=== PATIENT | female | born 1975 | race Caucasian/White ===

== ENCOUNTER → 2017-05-19 | Outpatient (CLI) | payer BC ==
[~2017-05-19] MED LIST: ADJUSTABLE COMM1 MIS; AMLO5TAB96 PO; CPMMACHINE; LOSA25TA PO; MAXZ PO; MELO7.5 PO; MOBI7.5T PO; OMEP20TA PO; PROP20TA3 PO; WALKER WHEELS/F1 MIS
[2017-05-19 08:51] LABS: HEMATOCRIT 37.4 % (35.0-46.0); HEMOGLOBIN 12.8 GM/DL (11.6-15.3); MEAN CELL VOLUME 82.2 FL (80.0-100.0); MEAN CORPUSCULAR HEMOGLOBIN 28.1 PG (27.0-34.0); MEAN CORPUSCULAR HGB CONC 34.2 % (32.0-36.0); MEAN PLATELET VOLUME 8.8 FL (7.0-11.0); PLATELET COUNT 289 TH/MM3 (150-450); RED BLOOD COUNT 4.55 MIL/MM3 (4.00-5.30); RED CELL DISTRIBUTION WIDTH 13.5 % (11.6-17.2); WHITE BLOOD COUNT 7.2 TH/MM3 (4.0-11.0)
[2017-05-19 08:59] LABS: INTERNATIONAL NORMALIZED RATIO 1.1 RATIO; PROTHROMBIN TIME - PATIENT 10.8 SEC (9.8-11.6)
[2017-05-19 09:19] LABS: ALBUMIN 3.4 GM/DL (3.4-5.0); AST (GOT) 10 U/L (15-37); BLOOD UREA NITROGEN 11 MG/DL (7-18); CALCIUM 8.9 MG/DL (8.5-10.1); CHLORIDE 102 MEQ/L (98-107); CREATININE 0.73 MG/DL (0.50-1.00); GLOMERULAR FILTRATION RATE 87 ML/MIN (>89); GLUCOSE,FASTING 120 MG/DL (74-99); SODIUM (NA) 139 MEQ/L (136-145)
[2017-05-19 09:20] LABS: ALT (GPT) 13 U/L (10-53)
[2017-05-19 09:22] LABS: ALKALINE PHOSPHATASE 74 U/L (45-117); TOTAL BILIRUBIN ADULT 0.5 MG/DL (0.2-1.0); TOTAL PROTEIN 7.5 GM/DL (6.4-8.2)
[2017-05-19 10:10] LABS: BACTERIA, URINE MANY /hpf; BILIRUBIN, URINE NEG (NEG); BLOOD, URINE SMALL (NEG); GLUCOSE,URINE NEG (NEG); KETONE, URINE NEG (NEG); MUCUS URINE FEW /lpf (OCC); NITRITE,URINE NEG (NEG); PH, URINE 6.5 (5.0-8.5); SQUAMOUS EPITHELIAL CELL URINE 33 /hpf (0-5); URINE COLOR YELLOW (YELLW/STRAW); URINE LEUKOCYTE ESTERASE LARGE (NEG)
--- NOTE | 2017-05-19 10:13 | RADRPT ---
EXAM DATE/TIME: 05/19/2017 09:14 [facility] COMPARISON: No previous studies available for comparison. INDICATIONS : Evaluate for pneumonia, pneumothorax or communicable disease. Pre op for right knee replacement MEDICAL HISTORY : None. SURGICAL HISTORY : None. ENCOUNTER: Initial ACUITY: 1 day PAIN SCORE: 0/10 LOCATION: Bilateral chest FINDINGS: PA and lateral views of the chest demonstrate the lungs to be mildly under aerated without evidence o f mass, infiltrate or effusion. The cardiomediastinal contours are unremarkable. Osseous structures are intact. CONCLUSION: No acute disease with this degree of inspiration. Jaxson Haynes MD FACR on May 19, 2017 at 10:10 Board Certified Radiologist. This report was verified electronically.
--- NOTE | 2017-05-19 21:59 | EKG ---
Date Performed: 05/19/2017 Time Performed: 08:26:56 PTAGE: 42 years EKG: Sinus rhythm MODERATE T-WAVE ABNORMALITY, CONSIDER ANTERIOR ISCHEMIA ABNORMAL ECG NO PREVIOUS TRACING DOCTOR: Ally Navarro Interpretating Date/Time 05/19/2017 21:56:29
== END ==
LOC: CPRE 08:08
PROVIDERS: ATTEND Surgery
DX: Z01.810 Encounter for preprocedural cardiovascular examination (principal); Z01.811 Encounter for preprocedural respiratory examination; Z01.812 Encounter for preprocedural laboratory examination; M79.609 Pain in unspecified limb; R94.31 Abnormal electrocardiogram [ECG] [EKG]; R82.90 Unspecified abnormal findings in urine
CPT/HCPCS: 36415; 71046; 80053; 81001; 85027; 85610; 85730; 87086; 93005

== ENCOUNTER 2017-05-26 10:45 | Inpatient (IN) | payer BC ==
--- NOTE | 2017-05-21 13:16 | MH ---
cc: Ally TATE M.D. DATE OF ADMISSION 05/26/2017 ADMITTING DIAGNOSIS Osteoarthritic degeneration right knee now being admitted for right total knee arthroplasty. HISTORY OF PRESENT ILLNESS This pleasant 42-year-old female is being admitted today for severe painful osteoarthritic degeneration of the right knee due to arthritic degeneration, rheumatoid as well. OTHER PAST HISTORY The patient has a of: 1. Osteoarthritis 2. Plantar fibromatosis 3. Hypertension 4. Obesity CURRENT MEDICATIONS 1. Losartan. 2. Propranolol PAST SURGERIES She has had scopes in the past on her knees and cryo ablation. REVIEW OF SYSTEMS Noncontributory FAMILY HISTORY Noncontributory SOCIAL HISTORY The patient does not smoke or drink. ALLERGIES HE HAS ALLERGY TO ALEVE AND GERITOL. PHYSICAL EXAM ON physical exam, we find a 42-year female well-developed, well-nourished oriented x3 complaining of pain in her right knee. VITAL SIGNS: Blood pressure 130/90, pulse 70 and regular, respirations 18, temperature 98.3, pulse oximetry 98% on room air. HEENT: Eyes PERRL, EOMI. Ears, nose, mouth clear. NECK: Supple. LUNGS: Clear. HEART: Regular rate. ABDOMEN: Soft. Positive bowel sounds, nontender. EXTREMITIES: Reveal his right knee to be tender with crepitance on range of motion. She is neurovascularly intact to her toes. IMPRESSION AT THIS TIME Severe painful osteoarthritic degeneration right knee. PLAN Admission for a right total knee arthroplasty today. The patient given prescription for postoperative pain and anticoagulation control in the office. She understands to use Hibiclens scrub and Bactroban preoperatively and plans on going home with home health care after a surgical stay in the hospital. MD MARTHA Johnson/GIRISH /12:47 PM /1:02 PM
[~2017-05-26] VITALS: Ht 165.1 cm; Wt 104.6 kg
[~2017-05-26 10:45] MED LIST changes: -ADJUSTABLE COMM1 MIS; -AMLO5TAB96 PO; -CPMMACHINE; -MAXZ PO; -MELO7.5 PO; -OMEP20TA PO; -WALKER WHEELS/F1 MIS
[2017-05-26] MEDS ORDERED: EXPAREL PERI-ARTICULAR INJECTION (TOTAL VOL. 60 ML) P-ARTICULR SCH ×2 (11:15)
[2017-05-26] MEDS ORDERED: ceFAZolin 2 GM PREMIX 50 ML IV SCH (11:15)
[2017-05-26] MEDS ORDERED: POVIDONE IODINE 7.5% SCRUB 118 ML BOTTLE TOPICAL SCH (11:15)
[2017-05-26] MEDS ORDERED: VANCOMYCIN 1 GM/200 ML PREMIX IV SCH (11:15)
[2017-05-26] MEDS ORDERED: TRANEXAMIC ACID IV SCH ×5 (11:15→16:00)
[2017-05-26] MEDS ORDERED: SODIUM CHLORIDE 0.9% IV SCH ×5 (11:15→16:00)
[2017-05-26] MEDS ORDERED: CHLORHEXIDINE GLUCONATE 2 % 1 PACK (2 CLOTHS) TOPICAL PRN (11:30)
[2017-05-26] MEDS ORDERED: POVIDONE IODINE 5% (ANTISEPSIS KIT) 4 APPLICATIONS EACH NARE PRN (11:30)
[2017-05-26] MEDS ORDERED: METOPROLOL TARTRATE 25 MG TAB PO PRN (11:30)
[2017-05-26] MEDS ORDERED: SODIUM CHLORID 0.9% 500 ML IV PRN (11:30)
[2017-05-26] MEDS ORDERED: LACTATED RINGER'S 1000 ML IV PRN (11:30)
[2017-05-26] MEDS ORDERED: INSULIN HUMAN REGULAR 1,000 UNITS/10 ML VIAL SQ PRN (11:30)
[2017-05-26] MEDS ORDERED: FAT EMULSION 20% INJ 0 ML ONE (11:36)
[2017-05-26] MEDS ORDERED: DEXAMETHASONE SOD PHOS 20 MG/5 ML VIAL ONE (11:48)
[2017-05-26] MEDS ORDERED: ROCURONIUM INJ 50 MG/5 ML SYRINGE IV PUSH ONE (12:00)
[2017-05-26] MEDS ORDERED: ONDANSETRON HCL 4 MG/2 ML VIAL IV ONE (12:00)
[2017-05-26] MEDS ORDERED: PROPOFOL 200 MG/20 ML AMP IV ONE (12:00)
[2017-05-26] MEDS ORDERED: BUPIVACAINE LIPOSOME PF 1.3% 20 ML VIAL ONE (12:55)
[2017-05-26] MEDS ORDERED: MIDAZOLAM HCL 2 MG/2 ML VIAL ONE ×2 (12:55→16:58)
[2017-05-26] MEDS ORDERED: diphenhydrAMINE HCL 50 MG/ML VIAL IV PUSH PRN (13:00)
[2017-05-26] MEDS ORDERED: TEMAZEPAM 15 MG CAP PO PRN (13:00)
[2017-05-26] MEDS ORDERED: NALOXONE HCL 0.4 MG/ML AMP IV PUSH PRN (13:00)
[2017-05-26] MEDS ORDERED: MORPHINE SULFATE 4 MG/ML INJ IV PUSH PRN (13:00)
[2017-05-26] MEDS ORDERED: ONDANSETRON HCL 4 MG/2 ML VIAL IVP PRN (13:00)
--- NOTE | 2017-05-26 13:05 | HHI.FF ---
Face to Face Verification Diagnosis: (1) Status post total right knee replacement using cement Physical Therapy Gait training Knee: Total knee, Protocol: Right, Gait training, Full weight bearing Canvas Knee Splint: When in bed & 2 pillows btw thighs Nursing RN: 3 days/week x 2 weeks Nursing: Dressing changes Dressing Changes: Daily dressing change, 4x4s, Gauze, Paper tape I have seen patient Louise Gallegos on 05/26/17. My clinical findings support the need for the requested home health care services because: Limited ability to care for self High risk of falls I certify that my clinical findings support that this patient is homebound because: Unsteady gait/balance Ally Graham MD May 26, 2017 13:05
[2017-05-26] MEDS ORDERED: WALKER WHEELS/F1 MIS (13:06)
[2017-05-26] MEDS ORDERED: CPMMACHINE (13:06)
[2017-05-26] MEDS ORDERED: ADJUSTABLE COMM1 MIS (13:06)
[2017-05-26] MEDS ORDERED: ceFAZolin INJ 1,000 MG VIAL ONE (13:45)
[2017-05-26] MEDS ORDERED: ACETAMINOPHEN 325 MG TAB PO PRN (14:00)
[2017-05-26] MEDS ORDERED: Post-op Orders (for Pharmacy) XX ONE (14:00)
[2017-05-26] MEDS ORDERED: PILL SPLITTER OTHER PRN (14:00)
[2017-05-26] MEDS ORDERED: ACETAMINOPHEN/HYDROcodone 325 MG/7.5 MG TAB PO PRN (14:00)
[2017-05-26] MEDS ORDERED: DO NOT ADM ANY ANTICOAGULANT DRUGS PRN (16:54)
--- NOTE | 2017-05-26 16:57 | HHI.PR ---
Immediate Post Op Note Procedure Date: May 26, 2017 Pre Op Diagnosis: severe painful osteoarthritic degeneration of the right knee due to arthritic degeneration, rheumatoid as well. Post Op Diagnosis: severe painful osteoarthritic degeneration of the right knee due to arthritic degeneration, rheumatoid as well. Surgeon: Shun Graham MD Chief Quality Officer(s): Blanca SHELBY Procedure: Right Total Knee Arthroplasty Complications: none Estimated blood loss: 200cc Anesthesia: General Drains: None IVF Urinary Output (mLs): 0 (No Tenorio) Tourniquet time (min at mmHg) 43 mins at 300mmHg Patient to: PACU Patient Condition: Good Implant/Devices: SEE IMPLANT LOG (if applicable) Date/Time of Procedure: SEE SURGICAL CARE RECORD Blanca Jang May 26, 2017 16:57
[2017-05-26] MEDS: LACTATED RINGER'S 1000 ML INJ 1,000 ML IV SCH (17:00)
[2017-05-26] MEDS ORDERED: *morphine SULFATE 10 MG/ML PERIprocedure ONLY ONE ×2 (17:02→18:41)
--- NOTE | 2017-05-26 17:54 | RADRPT ---
EXAM DATE/TIME: 05/26/2017 17:12 [facility] COMPARISON: No previous studies available for comparison. INDICATIONS : Post op right knee arthroplasty. MEDICAL HISTORY : None. SURGICAL HISTORY : None. ENCOUNTER: Initial ACUITY: 1 day PAIN SCORE: 4/10 LOCATION: Right knee FINDINGS: AP and lateral views of the knee following arthroplasty reveals a prosthesis in anatomic alignment. F racture is not appreciated. CONCLUSION: Status post total knee arthroplasty. Jaxson Haynes MD FACR Jaxson Haynes MD FACR on May 26, 2017 at 17:51 Board Certified Radiologist. This report was verified electronically.
[2017-05-26 19:45] VITALS: BP 158/84; PULSE 65; RESP 18; TEMP 96.7; O2SAT 99
[2017-05-26] MEDS: ACETAMINOPHEN/HYDROcodone 325 MG/7.5 MG TAB PO PRN ×2 (19:49→23:51)
[2017-05-26] MEDS: PROPRANOLOL HCL 20 MG TAB PO SCH (21:39)
[2017-05-27] VITALS (7 sets, daily range): BP systolic 140–185; BP diastolic 70–94; PULSE 55–73; RESP 17; TEMP 97.2–98.7; O2SAT 96–100
[2017-05-27] MEDS: LACTATED RINGER'S 1000 ML INJ 1,000 ML IV SCH ×2 (00:50→14:00)
[2017-05-27] MEDS: ACETAMINOPHEN/HYDROcodone 325 MG/7.5 MG TAB PO PRN ×4 (05:02→20:15)
[2017-05-27 08:23] LABS: HEMATOCRIT 31.9 % (35.0-46.0)
[2017-05-27] MEDS: LOSARTAN 25 MG TAB PO SCH (08:49)
[2017-05-27] MEDS: PROPRANOLOL HCL 20 MG TAB PO SCH ×2 (08:53→20:15)
--- NOTE | 2017-05-27 11:16 | PD.ORT.PN ---
Subjective Subjective Remarks Patient is comfortable and lying in bed first day postop. Objective Vitals Vital Signs Date Time Temp Pulse Resp B/P (MAP) Pulse Ox O2 Delivery O2 Flow Rate FiO2 05/27/17 08:28 96 Nasal Cannula 2.00 05/27/17 08:00 97.6 55 17 140/70 (93) 96 05/27/17 06:22 18 05/27/17 05:35 97.2 58 17 150/71 (97) 97 05/27/17 00:25 98.7 71 17 185/94 (124) 98 05/26/17 19:45 96.7 65 18 158/84 (108) 99 05/26/17 18:45 98.1 61 20 166/84 (111) 100 Nasal Cannula 2 05/26/17 17:45 61 20 163/80 (107) 100 Nasal Cannula 2 05/26/17 17:30 66 20 161/91 (114) 98 Nasal Cannula 2 05/26/17 17:15 88 20 152/81 (104) 99 Nasal Cannula 2 05/26/17 17:00 82 20 167/86 (113) 100 Nasal Cannula 2 05/26/17 16:48 97.6 82 20 134/77 (96) 98 Nasal Cannula 2 05/26/17 12:38 97.3 57 16 166/86 (112) 100 05/26/17 11:39 98.8 64 16 147/87 (107) 99 I/O 05/26/17 05/26/17 05/26/17 05/27/17 05/27/17 05/27/17 07:00 15:00 23:00 07:00 15:00 23:00 Intake Total 1660 ml 460 ml 100 ml Output Total 200 ml Balance 1460 ml 460 ml 100 ml Intake Oral 360 ml 360 ml IV Total 1300 ml 100 ml 100 ml Output Estimated Blood Loss 200 ml # Voids 1 1 2 # Bowel Movements 0 0 Result Diagram: 05/27/17 0807 Imaging Last 24 hours Impressions Knee X-Ray 05/26/17 1300 Signed Impressions: Service Date/Time: Friday, May 26, 2017 17:12 - CONCLUSION: Status post total knee arthroplasty. Jaxson Haynes MD Objective Remarks Dressing is dry and intact. No calf tenderness. Assessment & Plan Ortho Post Op Day #: 1 Problem List: Assessment and Plan Continue PT and daily wound care. Home tomorrow with home healthcare. Ally Graham MD May 27, 2017 11:15
--- NOTE | 2017-05-27 12:45 | MP ---
cc: Ally GRAHAM M.D. DATE OF SURGERY 05/26/2017 PREOPERATIVE DIAGNOSIS Osteoarthritic degeneration right knee. POSTOPERATIVE DIAGNOSIS Osteoarthritic degeneration right knee. SURGERY PERFORMED Right total knee arthroplasty using Consensus components, size 3 femur, 1 tibia, 12 insert and size 1 patella, two batches of DePuy cement. SURGEON Dr. Graham PEDIATRIC PHYSICIAN ASSISTANT AFSANEH Kan ANESTHESIA General intubation. PROCEDURE After successful induction of anesthesia, the patient is placed on the operating room table in the supine position. The knee is prepped and draped in the usual manner. A tourniquet is inflated at the upper thigh and set to 300 mmHg pressure after exsanguination of the lower extremity. A longitudinal incision is made extending from 3 inches proximal to the superior pole of the patella, across the patella in longitudinal fashion, and down past the insertion of the tibial tubercle into the proximal tibia. The incision is carried down through subcutaneous tissue along the medial aspect of the patella and retinaculum, down through the capsule to expose the knee joint. The patella and patellar tendon are freed up enough to allow the patella to be inverted and retracted off the lateral side of the knee joint. The knee joint is left exposed. Small osteophytes are removed. All soft tissue is removed to allow proper position of the femoral and tibial cutting jig guide. The first femoral jig is then inserted along the distal end of the femur after first measuring to decide whether this is a small, medium, or large component. The notch is then drilled and the tibial cutting guide inserted into the femoral cutting guide, along with the ankle brace to allow for proper measurement of the tibial cutting surface that needed to be resected. Pins are inserted into the tibial cutting jig and femoral cutting jig to hold them in place. An oscillating saw is then used to resect the surface of the tibia. The surface of the tibia is then completely removed using sharp and blunt dissection. The anterior and posterior cuts of the femur are then made as well using an oscillating saw through the cutting guide. All guides are then removed and the varus/valgus angulation cutting guide applied to the femur for proper measurement of the proper amount of valgus. The anterior cutting guide for the femur is then inserted at the anterior femoral cuts made. Next, the first block trial is inserted into the femur to allow for proper condyle drill holes to be made which are then made followed by removal of the bone between the condyles using an oscillating saw as well as the bone removed at the most posterior surface of the condyle. After this, this guide is removed and the chamfer cuts made using the chamfer cutting guide from both anterior and posterior. Next, the femoral trial is then inserted, the tibial surface reflected anterior to expose the tibial surface and a tibial stem guide is inserted after first measuring for a standard, standard plus, large, or large plus surface to be used. After the stem is impacted the trial tibial surface is applied followed by the trial meniscal components. After full range of motion is found with the appropriate length meniscal components varying the patella is prepared by resecting the posterior aspect of the patella using an oscillating saw, inserting a trial. The trial is then removed and the cruciate cutting guide applied using the bur to cut the cruciate cuts. After cruciate cuts are made all trials are removed. The wound is irrigated copiously with antibiotic solution and Water Pik and the actual components inserted into place using Consensus components, size 3 femur, 1 tibia, 12 insert and size 1 patella, two batches of DePuy cement. After the cement has hardened and the components are found to have full range of motion with no instability, the tourniquet is deflated, total tourniquet time being 43 minutes at 300 mmHg pressure. Meticulous hemostasis is achieved with the help of 3 mg of Tanya and 120 cc Exparel used around the knee joint for extra pain control. The deep fascia was approximated with running #2 Quill, the subcutaneous tissue approximated using interrupted and running 2-0 and 4-0 Monocryl sutures, Steri-Strips and sterile dressing, knee immobilizer. No drain utilized. ESTIMATED BLOOD LOSS 200 cc. COUNTS Sponge and suture counts were correct. The patient tolerated the procedure well and left the operating room in satisfactory condition. AFSANEH Kan, was present during the entire procedure to include patient positioning and the procedure. The medical necessity of the nurse practitioner entry level marketing assistant was indicated in this case due to the surgical complexity of the case itself. During the surgery for the whole case the surgical instrument technician was working the back table while my surgical garment assembly supervisor AFSANEH was directly assisting me. J. MD MARTHA Garcia/LUCY /4:18 PM /12:29 PM
[2017-05-27] MEDS: APIXABAN 2.5 MG TABLET PO SCH ×2 (15:39→20:15)
[2017-05-27] MEDS: DOCUSATE SODIUM 100 MG CAP PO SCH (20:15)
[2017-05-28] VITALS (8 sets, daily range): BP systolic 130–147; BP diastolic 62–97; PULSE 68–89; RESP 17–18; TEMP 97.5–99.2; O2SAT 96–98
[2017-05-28] MEDS: ACETAMINOPHEN/HYDROcodone 325 MG/7.5 MG TAB PO PRN ×6 (00:20→22:45)
[2017-05-28] MEDS: LACTATED RINGER'S 1000 ML INJ 1,000 ML IV SCH ×2 (02:30→15:00)
--- NOTE | 2017-05-28 08:16 | HHI.DS ---
Discharge Summary Admission Date May 26, 2017 at 10:45 Discharge Date: May 28, 2017 Admitting Diagnosis Osteoarthritic degeneration right knee Diagnosis: (1) Status post total right knee replacement using cement ICD Codes: Z96.651 - Presence of right artificial knee joint Brief History This is a 42 year old female patient CBC/BMP: 05/27/17 0807 Significant Findings Laboratory Tests Test 05/27/17 08:07 Hemoglobin 11.0 GM/DL (11.6-15.3) Hematocrit 31.9 % (35.0-46.0) PE at Discharge Dressing is dry and intact. No calf tenderness. Hospital Course This patient underwent a right total knee arthroplasty on day of admission. She received a course of prophylactic IV antibiotics and within 23 hours started on anticoagulation therapy. She remained afebrile with stable vital signs began out of bed tolerating food and fluid well and by mouth pain meds. She received daily wound care and was discharged on postoperative day #2 in good condition with instructions for home healthcare physical therapy and follow -up in the office. Pt Condition on Discharge: Good Discharge Disposition: Disch w/ Home Health Serv Discharge Instructions Diet Instructions: As Tolerated, No Restrictions Activities You Can Perform: Full Weight Bearing, Shower Only-No Bath Activities to Avoid: Bathing, Driving Ally Graham MD May 28, 2017 08:16
--- NOTE | 2017-05-28 08:17 | PD.ORT.PN ---
Subjective Subjective Remarks Patient is comfortable and sitting up in chair. Objective Vitals Vital Signs Date Time Temp Pulse Resp B/P (MAP) Pulse Ox O2 Delivery O2 Flow Rate FiO2 05/28/17 08:00 98.4 69 17 130/69 (89) 97 05/28/17 00:25 98.2 76 17 147/97 (114) 97 05/27/17 20:00 97.9 73 17 149/75 (99) 100 05/27/17 17:42 99 Nasal Cannula 2.00 05/27/17 16:00 98.0 66 17 147/70 (95) 99 05/27/17 08:28 96 Nasal Cannula 2.00 I/O 05/27/17 05/27/17 05/27/17 05/28/17 05/28/17 05/28/17 07:00 15:00 23:00 07:00 15:00 23:00 Intake Total 460 ml 580 ml 360 ml 360 ml Balance 460 ml 580 ml 360 ml 360 ml Intake Oral 360 ml 480 ml 360 ml 360 ml IV Total 100 ml 100 ml # Voids 2 2 1 2 # Bowel Movements 0 0 0 0 Result Diagram: 05/27/17 0807 Imaging Last 24 hours Impressions Knee X-Ray 05/26/17 1300 Signed Impressions: Service Date/Time: Friday, May 26, 2017 17:12 - CONCLUSION: Status post total knee arthroplasty. Jaxson Haynes MD Objective Remarks Dressing is dry and intact. No calf tenderness. Assessment & Plan Ortho Post Op Day #: 2 Problem List: (1) Status post total right knee replacement using cement ICD Codes: Z96.651 - Presence of right artificial knee joint Assessment and Plan Continue PT and daily wound care. Home today with home healthcare. Ally Graham MD May 28, 2017 08:17
[2017-05-28] MEDS: APIXABAN 2.5 MG TABLET PO SCH ×2 (09:27→22:04)
[2017-05-28] MEDS: PROPRANOLOL HCL 20 MG TAB PO SCH ×2 (09:27→22:04)
[2017-05-28] MEDS: LOSARTAN 25 MG TAB PO SCH (09:27)
[2017-05-28] MEDS: DOCUSATE SODIUM 100 MG CAP PO SCH ×2 (09:27→22:03)
[2017-05-28 10:08] LABS: HEMATOCRIT 30.8 % (35.0-46.0); HEMOGLOBIN 10.4 GM/DL (11.6-15.3)
[2017-05-28] MEDS ORDERED: BACITRACIN OINT 0.9 GM PKT TOP PRN (10:15)
[2017-05-29] MEDS: ACETAMINOPHEN/HYDROcodone 325 MG/7.5 MG TAB PO PRN ×3 (03:18→12:39)
[2017-05-29] MEDS: LACTATED RINGER'S 1000 ML INJ 1,000 ML IV SCH (03:30)
[2017-05-29 08:00] VITALS: BP 167/85; PULSE 81; RESP 17; TEMP 98; O2SAT 97
[2017-05-29 08:05] VITALS: O2SAT 98
[2017-05-29] MEDS: LOSARTAN 25 MG TAB PO SCH (08:20)
[2017-05-29] MEDS: PROPRANOLOL HCL 20 MG TAB PO SCH (08:20)
[2017-05-29] MEDS: DOCUSATE SODIUM 100 MG CAP PO SCH (08:20)
[2017-05-29] MEDS: APIXABAN 2.5 MG TABLET PO SCH (08:20)
[2017-05-29 12:00] VITALS: BP 141/71; PULSE 98; RESP 17; TEMP 98.5; O2SAT 99
--- NOTE | 2017-05-29 12:05 | PD.ORT.PN ---
Subjective Subjective Remarks Patient is comfortable and sitting up in chair.Awaiting [facility] approval before discharge! Objective Vitals Vital Signs Date Time Temp Pulse Resp B/P (MAP) Pulse Ox O2 Delivery O2 Flow Rate FiO2 05/29/17 08:05 98 21 05/29/17 08:00 98.0 81 17 167/85 (112) 97 05/28/17 23:40 98.6 78 18 131/62 (85) 96 05/28/17 21:45 98 Nasal Cannula 2.00 05/28/17 20:04 99.2 89 18 133/64 (87) 98 05/28/17 16:00 97.5 69 17 133/66 (88) 97 I/O 05/28/17 05/28/17 05/28/17 05/29/17 05/29/17 05/29/17 07:00 15:00 23:00 07:00 15:00 23:00 Intake Total 360 ml 480 ml 480 ml 360 ml Balance 360 ml 480 ml 480 ml 360 ml Intake Oral 360 ml 480 ml 480 ml 360 ml # Voids 2 3 5 1 # Bowel Movements 0 0 0 0 Result Diagram: 05/28/17 0750 Imaging Last 24 hours Impressions Knee X-Ray 05/26/17 1300 Signed Impressions: Service Date/Time: Friday, May 26, 2017 17:12 - CONCLUSION: Status post total knee arthroplasty. Jaxson Haynes MD Objective Remarks Dressing is dry and intact. No calf tenderness. Assessment & Plan Ortho Post Op Day #: 3 Problem List: (1) Status post total right knee replacement using cement ICD Codes: Z96.651 - Presence of right artificial knee joint Assessment and Plan Continue PT and daily wound care. Hopefully Home today with home healthcare. Ally Graham MD May 29, 2017 12:05
[2017-05-29] MEDS ORDERED: MAGNESIUM HYDROXIDE SUSP 30 ML CUP PO PRN (13:15)
[2017-05-29] MEDS ORDERED: BISACODYL 10 MG SUPP RECTAL PRN (13:15)
== END 2017-05-29 13:34 | disposition home health service (06) | DRG 470 ==
LOC: HSDI 10:45 → N06A 19:44
PROVIDERS: ADMIT Surgery; ATTEND Surgery
PROC: 0SRC0J9 Replacement of Right Knee Joint with Synthetic Substitute, Cemented, Open Approach (ICD-10-PCS; principal; 2017-05-26 14:06)
DX: M17.11 Unilateral primary osteoarthritis, right knee (principal); M06.9 Rheumatoid arthritis, unspecified; I10 Essential (primary) hypertension; E66.9 Obesity, unspecified; Z68.38 Body mass index [BMI] 38.0-38.9, adult
CPT/HCPCS: 73560; 85014; 85018; 86850; 86900; 86901; 94150; C1776; C9290; J0690; J1100; J2250; J2270; J2405; J3010; J3370; J7120; L1830

== ENCOUNTER 2017-11-24 07:24 | Observation (INO) ==
[2017-11-24] MEDS ORDERED: Dexamethasone Inj 20 MG/5 ML Vial ONE (08:05)
[2017-11-24] MEDS ORDERED: Sodium Chlor 0.9% Inj 250 ML ONE (08:07)
--- NOTE | 2017-11-24 08:37 | MH ---
cc: Ally Graham MD DATE OF ADMISSION: 11/24/2017 ADMITTING DIAGNOSIS: Osteoarthritic degeneration of the left knee, now being admitted for left total knee arthroplasty. HISTORY OF PRESENT ILLNESS: This is a pleasant 42-year-old female who is being admitted today for a left total knee arthroplasty due to severe painful osteoarthritic degeneration of the left knee. She recently had a right total knee done and did well. PAST MEDICAL HISTORY: The patient has a history of hypertension and arthritis. CURRENT MEDICATIONS: Mobic, which was stopped before surgery. PAST SURGICAL HISTORY: The right total knee arthroplasty and she has had bilateral arthroscopies of her knees before that. REVIEW OF SYSTEMS: Noncontributory. FAMILY HISTORY: Noncontributory. SOCIAL HISTORY: She does not smoke or drink. ALLERGIES: ALLERGIC TO ALEVE. PHYSICAL EXAMINATION: GENERAL: We find a 42-year-old female, well-developed, well-nourished, oriented x 3, complaining of pain in the left knee. VITAL SIGNS: Blood pressure 126/80, pulse 75 and regular, respirations 16, temperature 98.3, pulse oximetry 98% on room air. HEENT: Eyes: PERRL. EOMI. Ears, nose, mouth clear. NECK: Supple. LUNGS: Clear. HEART: Regular rate. ABDOMEN: Soft, positive bowel sounds, nontender. EXTREMITIES: Reveal the left knee to have crepitance on range of motion, which is limited. She is neurovascularly intact to her toes. Right knee has good range of motion. IMPRESSION: Severe painful osteoarthritic degeneration of the left knee. PLAN: Admission for a left total knee arthroplasty today. The patient was given prescription for postoperative pain and anticoagulation control in the office and plans on going home after the surgical stay in the hospital. MD MARTHA Julian/ALEXANDREA , 03:49 PM , 03:55 PM
[2017-11-24] MEDS ORDERED: Chlorhexidine Gluconate 2% 1 Pack (2 Cloths) TOPICAL SCH (08:45)
[2017-11-24] MEDS ORDERED: Metoprolol Tartrate 25 MG Tablet PO SCH (08:45)
[2017-11-24] MEDS ORDERED: Sodium Chlor 0.9% Inj 80 ML, Bupivacaine Liposo PF 1.3% Inj 20 ML, Bupivacaine PF 0.25%... P-ARTICULR SCH ×3 (08:45)
[2017-11-24] MEDS ORDERED: Vancomycin Inj 1,000 MG in Sodium Chlor 0.9% Inj 250 ML IV.SIG SCH (09:00)
[2017-11-24] MEDS ORDERED: CEFAZOLIN 2 GM/100 ML IV.SIG ONE ×2 (09:00)
[2017-11-24] MEDS ORDERED: SODIUM CHLOR 0.9% IV.SIG SCH (09:00)
[2017-11-24] MEDS ORDERED: Sodium Chlor 0.9% Inj 500 ML IV.SIG SCH (09:00)
[2017-11-24] MEDS ORDERED: NS IV.SIG ONE ×2 (09:00)
[2017-11-24] MEDS ORDERED: ceFAZolin 2 GM Premix Inj 2 GM/50 ML PIGGYBACK IV.SIG SCH (09:00)
[2017-11-24] MEDS ORDERED: TRANEXAMIC ACID IV.SIG SCH (09:00)
[2017-11-24] MEDS ORDERED: Bisacodyl 10 MG Supp RECTAL PRN (10:54)
[2017-11-24] MEDS ORDERED: Post-op Orders (for Pharmacy) OTHER STA (10:54)
--- NOTE | 2017-11-24 10:57 | P.DCO ---
- Physical Therapy Order: Evaluate and treat, Improve ambulation, Strength and gait training - Certification I have seen patient Louise Gallegos on 11/24/17. My clinical findings support the need for the requested home health care services because: High risk of falls I certify that my clinical findings support that this patient is homebound because: Post-op weakness, Unsteady gait/balance
[2017-11-24] MEDS ORDERED: Tobramycin Sulfate 1,200 MG Vial (for ortho/sterile core) OTHER ONE (11:31)
[2017-11-24] MEDS ORDERED: Lidocaine PF 1% Inj 5 ML Syringe INFILTRATN ONE (12:00)
[2017-11-24] MEDS ORDERED: Phenylephrine/NS 1000 MCG/10ML Syringe IV.PUSH ONE (12:00)
[2017-11-24] MEDS ORDERED: ceFAZolin 2 GM Premix Inj 0 GM/0 ML PIGGYBACK IV.SIG ONE (12:09)
[2017-11-24] MEDS ORDERED: *morphine SULFATE 10 MG/ML PERIprocedure ONLY ONE ×2 (14:43→15:48)
[2017-11-24] MEDS ORDERED: fentaNYL Citrate Inj 100 MCG/2 ML Ampul ONE (14:50)
--- NOTE | 2017-11-24 14:53 | P.BOP ---
- Preoperative Diagnosis (1) Osteoarthritis of left knee - Postoperative Diagnosis (1) Status post total left knee replacement using cement (2) Osteoarthritis of left knee Date of procedure: 11/24/17 Procedure: Left total Knee Arthroplasty Implants: see implant record Anesthesia: GETA Surgeon: Ally Graham MD Technical Applications Scientist: Blanca Jang Estimated blood loss (mL): 100 Tourniquet time (min): 60 (300 mmHg) Urine output (mL): 0 (no gregg) Pathology: none sent Condition: stable Disposition: PACU
--- NOTE | 2017-11-24 15:35 | MP ---
cc: Ally Graham MD DATE OF OPERATION: 11/24/2017 PREOPERATIVE DIAGNOSIS: Osteoarthritic degeneration, left knee. POSTOPERATIVE DIAGNOSIS: Osteoarthritic degeneration, left knee. PROCEDURE PERFORMED: Left total knee arthroplasty using Consensus components, size 3 femur, 1 tibia, 12 standard insert and size 1 patella with 2 batches of DePuy cement. SURGEON: Ally Graham MD CURBSTONE SETTER: AFSANEH Pastrana ANESTHESIA: General intubation and block. DESCRIPTION OF PROCEDURE: After successful induction of anesthesia, the patient is placed on the operating room table in the supine position. The knee is prepped and draped in the usual manner. A tourniquet is inflated at the upper thigh and set to 300 mmHg pressure after exsanguination of the lower extremity. A longitudinal incision is made extending from 3 inches proximal to the superior pole of the patella, across the patella in longitudinal fashion, and down past the insertion of the tibial tubercle into the proximal tibia. The incision is carried down through subcutaneous tissue along the medial aspect of the patella and retinaculum, down through the capsule to expose the knee joint. The patella and patellar tendon are freed up enough to allow the patella to be inverted and retracted off the lateral side of the knee joint. The knee joint is left exposed. Small osteophytes are removed. All soft tissue is removed to allow proper position of the femoral and tibial cutting jig guide. The first femoral jig is then inserted along the distal end of the femur after first measuring to decide whether this is a small, medium, or large component. The notch is then drilled and the tibial cutting guide inserted into the femoral cutting guide, along with the ankle brace to allow for proper measurement of the tibial cutting surface that needed to be resected. Pins are inserted into the tibial cutting jig and femoral cutting jig to hold them in place. An oscillating saw is then used to resect the surface of the tibia. The surface of the tibia is then completely removed using sharp and blunt dissection. The anterior and posterior cuts of the femur are then made as well using an oscillating saw through the cutting guide. All guides are then removed and the varus/valgus angulation cutting guide applied to the femur for proper measurement of the proper amount of valgus. The anterior cutting guide for the femur is then inserted at the anterior femoral cuts made. Next, the first block trial is inserted into the femur to allow for proper condyle drill holes to be made which are then made followed by removal of the bone between the condyles using an oscillating saw as well as the bone removed at the most posterior surface of the condyle. After this, this guide is removed and the chamfer cuts made using the chamfer cutting guide from both anterior and posterior. Next, the femoral trial is then inserted, the tibial surface reflected anterior to expose the tibial surface and a tibial stem guide is inserted after first measuring for a standard, standard plus, large, or large plus surface to be used. After the stem is impacted the trial tibial surface is applied followed by the trial meniscal components. After full range of motion is found with the appropriate length meniscal components varying the patella is prepared by resecting the posterior aspect of the patella using an oscillating saw, inserting a trial. The trial is then removed and the cruciate cutting guide applied using the bur to cut the cruciate cuts. After cruciate cuts are made all trials are removed. The wound is irrigated copiously with antibiotic solution and Water Pik and the actual components inserted into place using the aforementioned components. After the cement has hardened and the components are found to have full range of motion with no instability, the tourniquet is deflated, total tourniquet time being 60 minutes at 300 mmHg pressure. The wound again is irrigated copiously with antibiotic solution, meticulous hemostasis achieved and 120 mL of Exparel used around the knee joint for extra pain control. The deep fascia was approximated with running #2 Quill. The subcutaneous tissue was approximated using interrupted and running 2-0 and 3-0 Monocryl suture and Prineo dressing. No drain utilized. ESTIMATED BLOOD LOSS: 100 mL. COUNTS: Sponge and suture counts were correct. COMPONENTS: The components used were Consensus components, size 3 femur, 1 tibia, 12 standard insert and size 1 patella with 2 batches of DePuy cement. The patient tolerated the procedure well and left the operating room in satisfactory condition. AFSANEH Urena, was present during the entire procedure to include patient positioning and the procedure. The medical necessity of a nurse practitioner administrative assistant front desk was indicated in this case due to the surgical complexity of the case itself. During the surgical case, the surgical coordinator was working on the back table while my surgical aides teacher AFSANEH was directly assisting me. J. Gabriel Graham MD JRShea/jl , 02:11 PM , 02:18 PM
--- NOTE | 2017-11-24 15:39 | XR ---
EXAM DATE: 11/24/2017 3:21 PM EDT AGE/SEX: 42 years / Female INDICATIONS: Post op left knee. CLINICAL DATA: This is the patient's initial encounter. Patient reports that signs and symptoms have been present for 1 day and indicates a pain score of Nonresponsive. MEDICAL/SURGICAL HISTORY: None. None. COMPARISON: [facility] [place], KNEE RIGHT LTD (1 OR 2 VWS), 05/26/2017. . FINDINGS: Total left knee arthroplasty. All 3 components are appropriately positioned. No fracture. CONCLUSION: Appropriate postoperative appearance of the left knee status post arthroplasty. Electronically signed by: Dionte Jimenez MD 11/24/2017 3:37 PM EDT
[2017-11-24] MEDS ORDERED: Tranexamic Acid Inj 1,000 MG in Sodium Chlor 0.9% Inj 100 ML IV.SIG ONE (16:00)
[2017-11-24] MEDS ORDERED: *HYDROmorphone PF Inj 1 MG/ML Ampul PERIprocedural Use ONLY ONE (18:30)
[2017-11-24] MEDS ORDERED: *Ondansetron Inj 4 MG/2 ML Vial PERIprocedural Use ONLY ONE (18:58)
[2017-11-24] MEDS ORDERED: *Labetalol HCl Inj 100 MG/20 ML Vial PERIprocedural Use ONLY IV.PUSH ONE (19:17)
[2017-11-24] MEDS: Senna/Docusate Sodium 8.6/50 MG Tablet PO SCH (21:41)
[2017-11-24] MEDS: Multivitamin/Minerals Therapeutic Tablet PO SCH (21:41)
[2017-11-25 05:49] LABS: Hematocrit 32.1 % (35.0-46.0); Hemoglobin 10.8 gm/dL (11.6-15.3)
[2017-11-25] MEDS: Multivitamin/Minerals Therapeutic Tablet PO SCH ×2 (09:48→21:07)
--- NOTE | 2017-11-25 10:48 | P.PNOP ---
Subjective Interval history: Pt mostly comfortable today. Some pain over thigh area. Physical Exam Vital signs: Vital Signs 11/24/17 14:39 11/24/17 14:45 11/24/17 14:46 Temperature 98.2 F Pulse Rate 97 H 100 H Respiratory Rate 15 12 17 Blood Pressure 135/75 138/73 Pulse Oximetry 96 98 11/24/17 15:00 11/24/17 15:15 11/24/17 15:30 Temperature Pulse Rate 93 H 92 H 96 H Respiratory Rate 20 17 17 Blood Pressure 136/78 144/79 H 155/84 H Pulse Oximetry 99 99 100 11/24/17 15:50 11/24/17 16:00 11/24/17 16:30 Temperature Pulse Rate 90 92 H Respiratory Rate 20 18 13 Blood Pressure 154/81 H 143/74 H Pulse Oximetry 100 100 11/24/17 17:00 11/24/17 18:00 11/24/17 19:00 Temperature 97.9 F Pulse Rate 73 87 84 Respiratory Rate 14 14 18 Blood Pressure 153/75 H 163/97 H 174/86 H Pulse Oximetry 93 L 97 100 11/24/17 19:30 11/24/17 20:00 11/25/17 00:00 Temperature 97.8 F 97.9 F Pulse Rate 80 83 80 Respiratory Rate 16 16 16 Blood Pressure 155/84 H 147/80 H 130/65 Pulse Oximetry 99 99 95 11/25/17 04:00 11/25/17 08:00 Temperature 97.7 F 97.9 F Pulse Rate 82 67 Respiratory Rate 18 18 Blood Pressure 133/68 159/67 H Pulse Oximetry 98 99 Intake & Output 11/24/17 11/25/17 11/25/17 18:59 06:59 18:59 Intake Total 1300 / 1300 1340 / 1340 Output Total 100 / 100 550 / 550 Balance 1200 / 1200 790 / 790 Weight 104.7 kg 105.8 kg Intake: IV 1300 / 1300 1100 / 1100 LR 1000 mL Inj 1,000 ML @ 80 1000 / 1000 mls/hr IV.CONT .[id number] [facility] Rx# :[id number] LR 1000 mL Inj 1,000 ML @ 30 1300 / 1300 mls/hr IV.SIG .Q24H [facility] Rx#: [id number] Ancef Inj 1,000 MG In NS Inj 100 / 100 100 ML @ 200 mls/hr IV.SIG Q6H [facility] Rx#:[id number] Oral 240 / 240 Output: Urine 550 / 550 Estimated Blood Loss 100 / 100 Other: Weight On Admission 104.7 kg - Constitutional no acute distress Results - Labs CBC & Chem 7: 11/25/17 04:12 Laboratory Results - last 24 hr 11/25/17 04:12 Hgb 10.8 L Hct 32.1 L - Imaging Impressions Knee X-Ray 11/24/17 10:55 CONCLUSION: Appropriate postoperative appearance of the left knee status post arthroplasty. Assessment and Plan - Problem List (1) Status post total left knee replacement using cement Code(s): Z96.652 - Presence of left artificial knee joint Status: Acute - Attending Attestation Attending Attestation: Doing well overall sp left total knee arthroplasty. Plan for PT and OOB today. Possible dc to home tomorrow with HHC and PT.
[2017-11-25] MEDS: Senna/Docusate Sodium 8.6/50 MG Tablet PO SCH ×2 (11:54→21:07)
[2017-11-25] MEDS: Morphine Inj 4 MG/ML Vial IV.PUSH PRN (14:53)
[2017-11-26] MEDS: Morphine Inj 4 MG/ML Vial IV.PUSH PRN ×2 (01:40→09:22)
--- NOTE | 2017-11-26 08:23 | P.DCO ---
- Physical Therapy Order: Evaluate and treat, Improve ambulation, Strength and gait training - Certification I have seen patient Louise Gallegos on 11/26/17. My clinical findings support the need for the requested home health care services because: High risk of falls I certify that my clinical findings support that this patient is homebound because: Post-op weakness, Unsteady gait/balance
--- NOTE | 2017-11-26 08:27 | P.PNOP ---
Subjective Interval history: Pt more comfortable. Some pain on top of knee. Physical Exam Vital signs: Vital Signs 11/25/17 11:54 11/25/17 12:00 11/25/17 13:37 Temperature 97 F L Pulse Rate 86 Respiratory Rate 18 18 18 Blood Pressure 157/78 H Pulse Oximetry 99 11/25/17 14:55 11/25/17 16:00 11/25/17 17:55 Temperature 98.4 F Pulse Rate 92 H Respiratory Rate 18 18 18 Blood Pressure 181/95 H Pulse Oximetry 100 11/25/17 20:00 11/26/17 04:00 Temperature 97.7 F 97.9 F Pulse Rate 87 84 Respiratory Rate 18 18 Blood Pressure 156/80 H 164/80 H Pulse Oximetry 96 97 Intake & Output 11/25/17 11/26/17 11/26/17 18:59 06:59 18:59 Intake Total 1400 / 1400 1300 / 1300 Output Total 650 / 650 Balance 1400 / 1400 650 / 650 Weight 105.8 kg Intake: IV 1100 / 1100 1000 / 1000 LR 1000 mL Inj 1,000 ML @ 80 1000 / 1000 1000 / 1000 mls/hr IV.CONT .[id number] [facility] Rx# :[id number] Ancef Inj 1,000 MG In NS Inj 100 / 100 100 ML @ 200 mls/hr IV.SIG Q6H [facility] Rx#:[id number] Oral 300 / 300 300 / 300 Output: Urine 550 / 550 Estimated Blood Loss 100 / 100 Other: # Voids 1 1 Date of Last Bowel Movement 11/25/17 - Constitutional no acute distress Results - Labs CBC & Chem 7: 11/25/17 04:12 Assessment and Plan - Attending Attestation Attending Attestation: Doing well sp left total knee. Ready for dc today to home with home health care and PT. To office next week.
[2017-11-26 08:52] LABS: Hematocrit 32.2 % (35.0-46.0); Hemoglobin 10.6 gm/dL (11.6-15.3)
[2017-11-26 08:56] VITALS: RESP 20
[2017-11-26] MEDS: Senna/Docusate Sodium 8.6/50 MG Tablet PO SCH (09:22)
[2017-11-26] MEDS: Multivitamin/Minerals Therapeutic Tablet PO SCH (09:22)
[2017-11-26 12:17] VITALS: BP 149/83; PULSE 86; TEMP 98.4; O2SAT 99
== END 2017-11-26 12:00 | disposition home health service (06) ==
LOC: N06 07:24 → HSDI 07:24 → HSDC 07:24 → EDSTATUS 14:00 → N06 20:29
PROVIDERS: ADMIT Surgery; ATTEND Surgery